=== PATIENT | male | born 1980 | race Caucasian/White ===

== ENCOUNTER 2020-10-05 17:31 | Emergency (ER) | payer OTHER, SELFPAY ==
[2020-10-05 17:54] VITALS: BP 123/72; PULSE 63; RESP 19; TEMP 37.1; O2SAT 99; BMI 26.6
--- NOTE | 2020-10-05 17:59 | DI.RAD.S_ITS ---
PROCEDURE: XR FINGER LT MIN 2V INDICATIONS: finger injury TECHNIQUE: AP hand, 2 views of the 4th digit acquired. COMPARISON: None. FINDINGS: Bones: There is a mildly comminuted spiral fracture of the 4th middle phalanx. No dislocation. Soft tissues: No radiopaque foreign body. No suspicious soft tissue calcifications. IMPRESSION: 1. Mildly comminuted fracture of the 4th middle phalanx. Dictated by: Luis Morris M.D. on 10/05/2020 at 18:26 Approved by: Luis Morris M.D. on 10/05/2020 at 18:28
--- NOTE | 2020-10-05 19:48 | ED.UPPEXIN ---
HPI - Extremity Injury (Upper) General Chief Complaint: Extremity Injury, Upper Stated Complaint: LT FINGER POSS DISLOCATION Time Seen by Provider: 10/05/20 18:12 Source: patient Mode of arrival: Family Vehicle Limitations: no limitations History of Present Illness HPI narrative: 40-year-old male nonsmoker with noncontributory medical history presents with a chief complaint of an injury to his left 4th finger while tubing behind a boat today. He was being pulled behind a boat and did not let go of the handle and felt pain in his finger. He now has decreased range of motion secondary to pain but denies any numbness, tingling or weakness. He is otherwise well and free of complaint. He has pain with attempted range of motion and palpation and improvement with rest Related Data Previous Rx's Medication Instructions Recorded hydrocodone 5 mg-acetaminophen 325 1 tab PO Q4-6H PRN #10 tab 10/05/20 mg tablet Allergies Allergy/AdvReac Type Severity Reaction Status Date / Time Penicillins Allergy Hives Verified 10/05/20 17:58 Review of Systems Review of Systems Narrative: GENERAL: Denies chills, fatigue, malaise, fever, sweats. HEENT: Denies sinus pain, ear pain, sore throat, difficulty swallowing, dizziness. RESPIRATORY: Denies dyspnea, cough, wheezing, hemoptysis, sputum. CARDIOVASCULAR: Denies chest pain, palpitations, orthopnea, edema, GASTROINTESTINAL: Denies nausea, vomiting, abdominal pain, diarrhea, constipation, melena. : Denies dysuria, frequency, incontinence, hematuria, urinary retention. MUSCULOSKELETAL: See HPI SKIN: Denies rash, skin lesions, or other NEUROLOGIC: Denies weakness, headache, numbness, change in speech, confusion, seizures, incoordination. PSYCHIATRIC: No concerning psychosocial issues. 12 point review of systems is negative except for those stated above Patient History Social History Smoking Status: Never smoker Smoking Status: Never smoker alcohol intake frequency: 0-2 drinks per day Substance Use Type: does not use Exam Narrative Exam Narrative: GEN: AOx3 and in mild distress EYES: Pupils are equal, round, and reactive to light and accommodation. Extraoccular muscles are intact bilaterally. There is no subconjunctival hemorrhage or exudate. CHEST: Lungs are clear to auscultation bilaterally and free of wheezes, rales, or rhonchi. Heart rate is regular rhythm, there are no murmurs, clicks, rubs, or gallops. There is no chest wall tenderness. ABD: Abdomen is soft and nontender. There is no guarding or rebound. Bowel sounds are normal in all 4 quadrants. There is no mass or organomegaly. EXT: Decreased range of motion secondary to pain of left 4th finger, there is some swelling and a slight deformity but this is closed, isolated and neurovascularly intact SKIN: Warm, pink, and dry. No erythema or rash Initial Vital Signs Initial Vital Signs: Vital Signs Temperature 98.7 F 10/05/20 17:54 Pulse Rate 63 10/05/20 17:54 Respiratory Rate 19 10/05/20 17:54 Blood Pressure 123/72 10/05/20 17:54 Pulse Oximetry 99 10/05/20 17:54 Procedures Orthopedic Splinting/Casting Injury #1: Side: left Upper Extremity Injury Location: finger Upper Extremity Immobilizer: aluminum form splint and finger (other) Post splinting neuro exam: intact Post splinting vascular exam: intact Placed by: Nursing Course Orders Ordered: ED Orders 10/05/20 17:59 XR finger LT min 2V Stat Consultations Consultation #1: Discussed with on-call orthopedics (Dr. Rowell) who recommends splinting and follow up, suggesting there is a decent chance that patient will need surgical intervention Vital Signs Vital signs: Vital Signs - 8 hr 10/05/20 17:54 Temperature 98.7 F Pulse Rate 63 Respiratory Rate 19 Blood Pressure 123/72 Pulse Oximetry 99 MDM - Extremity Injury (Upper) Imaging Data Extremity x-ray #1: Radiologist's Impression: [address] [id number] ReportSigned Patient: Adriano Abernathy [facility]#: [id number]: 1980Acct:[id number]/Sex: 40 / MDate of Service: 10/05/20Loc: EDAccession Number: [id number] Procedure: XR finger LT min 2V Ordering Provider: Lobo Ramirez D.O. PROCEDURE: XR FINGER LT MIN 2V INDICATIONS: finger injury TECHNIQUE: AP hand, 2 views of the 4th digit acquired. COMPARISON: None. FINDINGS: Bones: There is a mildly comminuted spiral fracture of the 4th middle phalanx. No dislocation. Soft tissues: No radiopaque foreign body. No suspicious soft tissue calcifications. IMPRESSION: 1. Mildly comminuted fracture of the 4th middle phalanx. Dictated by: Luis Morris M.D. on 10/05/2020 at 18:26 Approved by: Luis Morris M.D. on 10/05/2020 at 18:28 [facility] Narrative Medical decision making narrative: Patient splinted, return precautions given and he is aware that this could potentially be a surgical injury. He understands the importance of follow-up and questions have been answered to his apparent satisfaction Discharge Plan Departure Patient Disposition: Home Clinical Impression: Fracture of finger Qualifiers: Encounter type: initial encounter Finger: ring finger Fracture type: closed Phalanx: middle Fracture alignment: displaced Laterality: left Qualified Code(s): S62.625A - Displaced fracture of middle phalanx of left ring finger, initial encounter for closed fracture Instructions: DI for Finger Fracture Activity Restrictions/Additional Instructions: *You have been diagnosed with [comminuted fracture of middle phalanx of left 4th finger] *What to do: *Please continue to take your regular medications as directed. [ ] New medication prescriptions sent to your pharmacy: [ ] [x] New medication written as a paper prescription [ ] No new medications given *Please follow up with Dr. Delarosa at [facility] [phone] , call for an appointment. Let them know you were seen in the Emergency Department and that we ask that you be seen in follow up. We will electronically transmit a record of today's note if your PCP is in our system *If you do not have a primary care provider please contact the [facility] Resource line at [phone]. They will ask some questions about your medical history and help get you set up with a doctor in the community. *Return to Emergency Department if you should have any new, worsening or concerning symptoms, such as [fever greater than 101 F, shaking chills, worsening pain, persistent vomiting or other bothersome symptoms] Prescriptions: New hydrocodone-acetaminophen 5-325 mg tablet 1 tab PO Q4-6H PRN (Reason: pain) Qty: 10 RF: 0
== END 2020-10-05 20:31 | disposition home or self-care (01) ==
PROVIDERS: Emergency Provider Emergency Medicine
DX: S62.625A Displaced fracture of middle phalanx of left ring finger, initial encounter for closed fracture (principal); X58.XXXA Exposure to other specified factors, initial encounter
CPT/HCPCS: 29130; 73140; 99281; 99283